=== PATIENT | female | born 1955 | race Caucasian/White ===

== ENCOUNTER 2016-10-27 07:30 | Day surgery (SDC) | payer BC, OTHER ==
[~2016-10-27 07:30] MED LIST: Metoclopramide 10 MG/2 ML SDV IV PRN; Sodium Chloride 0.9% 10 ML Syringe FLUSH PRN
[2016-10-27] MEDS ORDERED: Sodium Chloride 0.9% 1,000 ML IV SCH (08:15)
[2016-10-27] MEDS ORDERED: Midazolam 1 MG/ML 5 ML SDV ONE (09:45)
[2016-10-27] MEDS ORDERED: Propofol 200 MG/20 ML SDV ONE (09:45)
--- NOTE | 2016-10-27 14:09 | OR ---
DATE OF OPERATION: PREOPERATIVE DIAGNOSIS: Screening colonoscopy. POSTOPERATIVE DIAGNOSIS: Diverticulosis coli. OPERATION: Screening colonoscopy. COMPLICATIONS: None. DRAINS: None. SPECIMENS: None. ESTIMATED BLOOD LOSS: Zero. ANESTHESIA: General propofol anesthesia. INDICATION: Ms. Delaney is a 60-year-old female, who had a previous colonoscopy approximately 10+ years ago. She is here for another screening colonoscopy. She is considered increased risk due to her father having colon cancer. She is currently asymptomatic. The above-mentioned procedure was explained. The risks, benefits, and complications were explained. The patient understood and agreed, and was brought to the operating room. DESCRIPTION OF PROCEDURE: The patient was brought to the operating room and placed in the left lateral decubitus position on the operating room table. Satisfactory general propofol anesthesia was administered. We began by performing a rectal examination which was within normal limits. I then placed the endoscope by finger introduction into the rectum and advanced it to the level of the cecum. The cecum was identified by the appendiceal orifice, the cecal strap and the ileocecal valve. We then carefully evaluated the mucosa on withdrawal. This revealed no telangiectasias, polyps, or neoplastic growths. Evaluation of the colon did show significant diverticulosis, moderate to severe, involving the sigmoid, then descending colon, and rectosigmoid. There were no strictures. No evidence of bleeding. No other abnormalities detected. We then performed a retroflexion maneuver in the rectum which revealed no other significant findings. The colon was then decompressed and the endoscope was withdrawn. The patient tolerated the procedure well. There were no complications. Instrument count was correct. The patient was awoken in the OR and taken to PACU for recovery. BUCKY /[id number]
== END 2016-10-27 11:50 | disposition home or self-care (01) ==
LOC: LB.SDS 07:30
PROVIDERS: ATTEND Surgery
PROC: 0DJD8ZZ Inspection of Lower Intestinal Tract, Via Natural or Artificial Opening Endoscopic (ICD-10-PCS; principal; 2016-10-27)
DX: Z12.11 Encounter for screening for malignant neoplasm of colon (principal); K57.30 Diverticulosis of large intestine without perforation or abscess without bleeding; Z88.8 Allergy status to other drugs, medicaments and biological substances
CPT/HCPCS: 45378; J2250; J2704; J7040

== ENCOUNTER 2024-07-14 11:54 | Emergency (ER) | payer MEDICARE ==
[2024-07-14] MEDS ORDERED: Sodium Chloride 0.9% 10 ML Syringe FLUSH PRN (12:00)
[2024-07-14] MEDS: Sodium Chloride 0.9% 1,000 ML IV ONE (12:23)
[2024-07-14 12:56] LABS: BASOPHILS ABSOLUTE AUTO 0.03 K/uL (0.02-0.10); BASOPHILS PERCENT AUTO 0.5 % (0.0-0.5); EOSINOPHILS ABSOLUTE AUTO 0.19 K/uL (0.04-0.40); EOSINOPHILS PERCENT AUTO 3.1 % (1.0-5.0); HEMATOCRIT 40.8 % (37.0-47.0); HEMOGLOBIN 13.6 g/dL (11.5-16.5); LYMPHOCYTES ABSOLUTE AUTO 1.75 K/uL (1.50-4.00); LYMPHOCYTES PERCENT AUTO 28.4 % (20.0-40.0); MEAN CORPUSCULAR HEMOGLOBIN 31.3 pg (27.0-32.0); MEAN CORPUSCULAR HGB CONC 33.3 g/dL (31.0-35.0); MEAN CORPUSCULAR VOLUME 94 fL (76-96); MEAN PLATELET VOLUME 10.9 fL (6.0-10.0); MONOCYTES ABSOLUTE AUTO 0.35 K/uL (0.20-0.80); MONOCYTES PERCENT AUTO 5.7 % (3.0-10.0); NEUTROPHILS ABSOLUTE AUTO 3.85 K/uL (2.00-7.50); NEUTROPHILS PERCENT AUTO 62.3 % (45.0-70.0); PLATELET COUNT,PLT 251 K/uL (150-500); RED BLOOD CELL COUNT 4.35 M/uL (3.80-5.80); RED CELL DISTRIBUTION WIDTH 12.6 % (11.0-16.0); WHITE BLOOD CELL COUNT,WBC 6.2 K/uL (4.0-11.0)
[2024-07-14 13:08] LABS: INR 1.1 (1.0-3.5); PTT,PARTIAL THROMBOPLSTIN TIME 21.8 SECONDS (24.4-33.2)
[2024-07-14 13:10] LABS: A/G RATIO 1.2 (0.8-2.0); ALANINE AMINOTRANSFERASE,ALT 25 U/L (12-78); ALBUMIN 3.8 g/dL (3.4-5.0); ALKALINE PHOSPHATASE 92 U/L (46-116); ANION GAP 17.9 mmol/L (5.0-15.0); ASPARTATE AMNIOTRANSFERASE,AST 21 U/L (15-37); BILIRUBIN TOTAL 0.4 mg/dL (0.0-1.0); BLOOD UREA NITROGEN,BUN 20 mg/dL (8-26); CALCIUM 9.6 mg/dL (8.5-10.1); CARBON DIOXIDE,CO2 26.1 mmol/L (21.0-32.0); CHLORIDE,CL 104 mmol/L (98-107); CREATININE 1.43 mg/dL (0.55-1.02); ESTIMATED GFR 40 mL/min (>60); GLUCOSE RANDOM 151 mg/dL (74-100); PROTEIN TOTAL,TP 6.9 g/dL (6.4-8.2); SODIUM,NA 144 mmol/L (136-145)
[2024-07-14 13:16] LABS: LIPASE 35 U/L (16-77); MAGNESIUM 1.9 mg/dL (1.8-2.4)
[2024-07-14 13:34] LABS: C-REACTIVE PROTEIN < 5.0 mg/L (<5.0); TROPONIN I HIGH SENSITIVITY < 4.0 pg/ml (<=60.4)
[2024-07-14] MEDS: Sodium Phosphate,Monobasic/Sodium Phosphate,Dibasic Enema 133 ML Bottle RECTAL ONE (14:00)
== END 2024-07-14 14:55 | disposition home or self-care (01) ==
LOC: LB.ED 12:11
DX: R55 Syncope and collapse (principal); K59.00 Constipation, unspecified; Z79.82 Long term (current) use of aspirin; Z79.899 Other long term (current) drug therapy; Z88.8 Allergy status to other drugs, medicaments and biological substances
CPT/HCPCS: 36415; 70450; 74176; 80053; 83690; 83735; 84484; 85025; 85610; 85730; 86140; 93005; 96360; 96361; 99284; A9270; J7030; A0425; A0429